=== PATIENT | female | born 1935 | race Hispanic/Latino ===

== ENCOUNTER 2016-12-01 10:45 | Outpatient (CLI) | payer MEDICARE ==
--- NOTE | 2016-12-01 16:09 | Mammography Report ---
BILATERAL DIGITAL SCREENING MAMMOGRAM with CAD : 12/01/16 10:45:00 CLINICAL: Routine screening. COMPARISON:03/10/14 FINDINGS: The breasts are heterogeneously dense, which may obscure small masses.Right retroareolar surgical clips. No mass, architectural distortion or suspicious calcifications. IMPRESSION: No mammographic evidence of malignancy. BI-RADS CATEGORY: 2 -- Benign RECOMMENDATION: Routine mammographic screening in one year. COMMENT: Patient follow-up letters are generated by our [employer] application.
== END 2016-12-01 10:46 | disposition home or self-care (01) ==
LOC: SPVWC 10:45
PROVIDERS: ATTEND Obstetrics & Gynecology
DX: Z12.31 Encounter for screening mammogram for malignant neoplasm of breast (principal)
CPT/HCPCS: 77067; G0202

== ENCOUNTER 2019-02-10 12:50 | Outpatient (CLI) | payer MEDICARE ==
--- NOTE | 2019-02-10 16:29 | Mammography Report ---
BILATERAL DIGITAL SCREENING MAMMOGRAM with CAD : 02/10/19 12:50:00 CLINICAL: Routine screening. COMPARISON:12/01/16 FINDINGS: The breasts are heterogeneously dense, which may obscure small masses.Right retroareolar surgical clips. A few bilateral benign calcifications, some of which are arterial. No mass, architectural distortion or suspicious calcifications. IMPRESSION: No mammographic evidence of malignancy. BI-RADS CATEGORY: 2 -- Benign RECOMMENDATION: Routine mammographic screening in one year. COMMENT: Patient follow-up letters are generated by our [employer] application.
== END 2019-02-10 12:51 | disposition home or self-care (01) ==
LOC: SPVWC 12:50
PROVIDERS: ATTEND Obstetrics & Gynecology
DX: Z12.31 Encounter for screening mammogram for malignant neoplasm of breast (principal)
CPT/HCPCS: 77067